=== PATIENT | male | born 1970 | race Caucasian/White ===

== ENCOUNTER 2017-02-17 11:51 | Emergency (ER) | payer OTHER ==
--- NOTE | 2017-02-17 12:12 | EDPHY ---
H & P Time Seen by Provider: 02/17/17 11:58 HPI/ROS: Chief Complaint: Possible foreign body right foot HPI: 46-year-old male was in [place] 2 days ago when he stepped on a patchy of thorns. He had multiple friends in his foot and he believes he removed all of them. Since that time he is occasionally having shooting pains up his leg. These are current howard walking. He has not had any pain in his foot. The pain is leg last few minutes still he "walks it off ". Does not have a history of same. No redness. No discharge. Is not have any fevers or chills. ROS: 10 point Review of Systems is negative except as noted in the HPI. PMH: Denies Social History: [No] smoking, occasional alcohol, occasional marijuana Family History: [non-contributory] Physical Exam: General: Awake, alert, no acute distress Extremity: Right hip, full range of motion of pain Right knee: Nontender, full range of motion without pain Right ankle: Nontender, full range of motion of pain Right foot: Case several closed puncture wounds in plantar is portion of his right foot. The oral closed. There is no erythema. There is no tenderness in any portions of his sole. There is no erythema. He has full range of motion of pain. Sensations intact in all dermatomes. Cap refills less than 2 seconds. He has 2+ DP and PT pulses. Skin: No rash Constitutional: Initial Vital Signs Temperature (C) 36.8 C 02/17/17 12:12 Heart Rate 88 02/17/17 12:12 Respiratory Rate 14 02/17/17 12:12 Blood Pressure 152/102 H 02/17/17 12:12 O2 Sat (%) 96 02/17/17 12:12 O2 Delivery Mode Room Air Allergies/Adverse Reactions: Penicillins Allergy (Verified 02/17/17 12:12) Home Medications: Medication Instructions Recorded None 03/07/09 Medical Decision Making - Diagnostics Imaging Results: Imaging Impressions Foot X-Ray 02/17/17 12:04 Impression: Negative right foot radiographs. ED Course/Re-evaluation: Patient having pain in his right leg status post having stepped on 3rd several days ago. He has not have any constitutional complaints. He is pain-free at this time. Patient states he taking some aching pain in his right leg which lasts for few minutes walks about. He is not having any foot pain. There is no redness. He has no plantar tenderness whatsoever. There is no erythema. There are no findings suggestive of retained foreign body at this time. Will obtain a soft tissue foot x-ray just to rule out any radiopaque foreign bodies. He is otherwise well-appearing. If these are negative plan will be to discharge him with follow up with primary care physician. No indication for antibiotics. Do not think there needs to be an exploration at this time because they do not have any specific focal point where I suspect I might find a foreign body. Departure - Departure Disposition: Home, Routine, Self-Care Clinical Impression: Foot pain Condition: Good Instructions: Leg Pain (ED) Additional Instructions: Return to the emergency department for increasing redness, worsening pain, streaking up your leg, fevers, chills, or any other concerns. Follow up with primary care physician in 3-4 days for re-evaluation. Referrals: NONE *PRIMARY CARE P,. [Primary Care Provider] - As per Instructions
[2017-02-17 12:17] VITALS: BP 152/102; PULSE 88; RESP 14; TEMP 98.2; O2SAT 96
== END 2017-02-17 13:24 | disposition home or self-care (01) ==
LOC: CED 11:51
DX: M79.671 Pain in right foot (principal)
CPT/HCPCS: 73620-PO